=== PATIENT | male | born 1975 | race Caucasian/White ===

== ENCOUNTER 2024-02-20 10:38 | Emergency (ER) | payer OTHER ==
[~2024-02-20] VITALS: Ht 170.2 cm; Wt 40.4 kg
[2024-02-20] MEDS ORDERED: FentaNYL Citrate 50 MCG/ML 2 ML Injection IV ONE (11:05)
[2024-02-20] MEDS ORDERED: Ondansetron HCl 2 MG / ML 2ML Vial IV ONE (11:05)
[2024-02-20 11:16] LABS: BASOPHILS ABSOLUTE AUTO 0.03 K/mm3 (0.00-0.23); BASOPHILS PERCENT AUTO 1 % (0-2); EOSINOPHILS ABSOLUTE AUTO 0.19 K/mm3 (0.00-0.68); EOSINOPHILS PERCENT AUTO 3 % (0-6); Hematocrit 35.4 % (37.0-53.0); Hemoglobin 11.8 g/dL (13.5-17.5); IMMATURE GRAN ABSOLUTE AUTO 0.03 K/mm3 (0.00-0.10); IMMATURE GRAN PERCENT AUTO 1 % (0-1); LYMPHOCYTES ABSOLUTE AUTO 1.63 K/mm3 (0.84-5.20); LYMPHOCYTES PERCENT AUTO 30 % (21-46); MONOCYTES ABSOLUTE AUTO 0.37 K/mm3 (0.16-1.47); MONOCYTES PERCENT AUTO 7 % (4-13); Mean Corpuscular HGB 30.1 pg (26.0-34.0); Mean Corpuscular HGB Conc 33.3 g/dL (31.5-36.5); Mean Corpuscular Volume 90 fL (80-100); NEUTROPHILS ABSOLUTE AUTO 3.26 K/mm3 (1.96-9.15); NEUTROPHILS PERCENT AUTO 59 % (41-73); Platelet Count 275 K/mm3 (150-400); RDW Coefficient Variation 13.2 % (11.7-14.2); RDW Standard Deviation 43.5 fL (35.1-46.3); Red Blood Cell Count 3.92 M/mm3 (4.30-5.90); White Blood Cell Count 5.51 K/mm3 (4.00-11.30)
[2024-02-20 11:44] LABS: Albumin, Blood 3.4 g/dL (3.4-5.0); Albumin/Globulin Ratio 0.9 (0.8-1.8); Bilirubin, Total 0.4 mg/dL (0.1-1.0); Bun/Creatinine Ratio 17.9 (12.0-20.0); Calcium, Blood 9.2 mg/dL (8.5-10.1); Creatinine, Blood 0.5 mg/dL (0.60-1.20); Globulin, Blood 3.6 g/dL (2.2-4.0); Potassium, Blood 3.7 mmol/L (3.5-5.5)
[2024-02-20 11:56] LABS: Source, Urine Clean Catch
[2024-02-20 12:01] LABS: Appearance, Urine Clear (Clear); Bilirubin, Urine Neg (Neg); Blood, Urine Neg (Neg); Color, Urine Yellow (P-Yellow); Glucose Qualitative, Urine Neg (Neg); Ketones, Urine Neg (Neg); Leukocyte Esterase, Urine Neg (Neg); Nitrite, Urine Neg (Neg); Protein, Urine Neg (Neg); Urobilinogen, Urine NORM (Normal)
[2024-02-20] MEDS ORDERED: IBUP600 PO (12:34)
== END 2024-02-20 12:55 | disposition home or self-care (01) ==
LOC: ER 10:38
PROVIDERS: Emergency Medicine
DX: R07.89 Other chest pain (principal); E03.9 Hypothyroidism, unspecified; Z88.8 Allergy status to other drugs, medicaments and biological substances
CPT/HCPCS: 71045; 80053; 81003; 84484; 85025; 85379; 93005; 93010; 96374; 96375; 99285-25; J2405; J3010

== ENCOUNTER 2024-07-24 09:49 | Day surgery (SDC) | payer OTHER ==
[~2024-07-24] VITALS: Ht 170.2 cm; Wt 93.0 kg
[2024-07-24] VITALS (7 sets, daily range): BP systolic 109–121; BP diastolic 70–96
[~2024-07-24 09:49] MED LIST: AZAT50 PO; BALSALAZIDE DI750 M1 PO; BUTALB-ACETAMI1 EAC4 PO; Bupivacaine 0.5% HCl 5 MG/ML 30MLVIAL ONE; CYCL10 PO; IBUP600 PO; IBUP800 PO; LEVSOD137 PO; Lactated Ringer's 1,000 ML IV SCH; Prozac40 MG PO; THERA-D2000 UNIT PO
--- NOTE | 2024-07-24 10:06 | NUR ---
History, Chart, Medications and Allergies reviewed before start of procedure.Patient confirms NPO status and agrees with scheduled surgery. Pre-Op teaching done. Pt verbalizes understanding.
[2024-07-24] MEDS ORDERED: FentaNYL Citrate 50 MCG/ML 2 ML Injection ONE (10:32)
[2024-07-24] MEDS ORDERED: propofoL 20 ML IV ONE (10:32)
[2024-07-24] MEDS ORDERED: Dexamethasone Sod Phos 10 MG/ML 1ML VIAL ONE (10:57)
[2024-07-24] MEDS ORDERED: Ketorolac Tromethamine 30mg Vial ONE (10:57)
[2024-07-24] MEDS ORDERED: Ondansetron HCl 2 MG / ML 2ML Vial ONE (10:57)
[2024-07-24] MEDS ORDERED: Lidocaine HCl 2% 20 ML MDV ONE (10:58)
[2024-07-24] MEDS ORDERED: HYDROcodone 5-APAP 325 TAB PO PRN (11:50)
--- NOTE | 2024-07-24 12:02 | NUR ---
REPORT RECEIVED FROM JEFFREY SHUKLA. VSS. PT ON RA. PT A&OX4. PT ABLE TO REPOSITION SELF IN BED. PT REQUESTING PO FOOD AND FLUIDS AND TOLERATING THEM WELL. PT DENIES PAIN, NAUSEA OR OTHER DISCOMFORTS. PT HAS EXOFEN TO SURG SITE ON LEFT SIDE OF FOREHEAD THAT IS CDI.
--- NOTE | 2024-07-24 12:22 | NUR ---
Patient up to Ambulate independently. Gait steady. VSS AND CONSISTENT WITH PT BASELINE. Discharge instructions reviewed with patient. Patient verbalizes understanding. Copy given to patient to take home. Dressing to procedure site clean, dry, intact with no visible drainage, swelling, erythema or bruising noted. Patient States Post-Procedure ride home has been arranged. Discharged via wheelchair to private car for ride home. PT BELONGINGS RETURNED TO PT.
== END 2024-07-24 12:24 | disposition home or self-care (01) ==
LOC: ORSCMMR 09:49
PROVIDERS: Surgery
PROC: 0JB10ZX Excision of Face Subcutaneous Tissue and Fascia, Open Approach, Diagnostic (ICD-10-PCS; principal; 2024-07-24 10:30)
DX: D17.0 Benign lipomatous neoplasm of skin and subcutaneous tissue of head, face and neck (principal); E03.9 Hypothyroidism, unspecified; Z79.899 Other long term (current) drug therapy
CPT/HCPCS: 88304; J1100; J1885; J2405; J2704; J3010; J7120